=== PATIENT | male | born 1965 | race Caucasian/White ===

== ENCOUNTER 2016-06-15 14:30 | Inpatient (IN) | payer OTHER ==
--- NOTE | 2016-06-15 14:53 | EDPRACDOC ---
- General Information Information Source: Patient Mode Of Arrival: Car - History of Present Illness Onset: 2 WEEKS HPI: PT STATES INCREASING SOBR X 2 WEEKS, FAMILY STATES PT HAS BEEN "WAKING UP SOBR" , HAS BEEN "GASPING FOR AIR", HAVING FREQUENT "PANIC ATTACKS", WENT TO URGENT CARE TODAY, BP FOUND TO BE MARKEDLY ELEVATED, REFERRED TO THE ED. Shortness of Breath: Moderate Relevant History: Reports: None Cough: Reports: Non-productive Rhinorrhea: Denies: Clear, Bloody, Brown, Green, Purulent, None, O Ear Symptoms: Reports: None SOB Worsens with: Reports: Nothing SOB Improves with: Reports: Nothing Recently treated infections:: Denies: Otitis media, Pneumonia, URI Associated Signs and symptoms: Reports: AMS (FAMILY STATES SLURRED SPEECH AT TIMES). Denies: Cough, Earache, Fever, Headache, Nasal Symptoms, Sore Throat, Nausea, Vomiting, Diarrhea, Myalgia, Rash, Pain with head movement <Young Arreguin - Last Filed: 06/15/16 16:18> <Freddie Conde - Last Filed: 06/17/16 22:28> - General Information Chief Complaint: Blood Pressure (Problems) Stated Complaint: HIGH BLOOD PRESSURE Time Seen by Provider: 06/15/16 14:45 Home Medications: Home Medications No Home Medications 06/15/16 Allergies/Adverse Reactions: Allergies Allergy/AdvReac Type Severity Reaction Status Date / Time No Known Allergies Allergy Verified 06/15/16 20:09 - Treatment Prior to ED Arrival Reported Medications/Treatment 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 (Medication/ NTG/baby ASA x4 at Urgent [facility] Dose/Time) <Young Arreguin - Last Filed: 06/15/16 16:18> - Treatment Prior to ED Arrival Reported Medications/Treatment 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 (Medication/ NTG/baby ASA x4 at Urgent [facility] Dose/Time) <Freddie Conde - Last Filed: 06/17/16 22:28> ED Past Medical History - History Reviewed Yes Nurses notes reviewed and agree except as marked No Past Medical History: Yes Patient has no past medical history - Social Medical History Smoking Status: Heavy tobacco smoker (5 or more cigarettes/day or daily pipe/ cigar) ETOH: Abuse (6 PACK A DAY) Substance Abuse: None <Young Arreguin - Last Filed: 06/15/16 16:18> EDM Review of Systems - Review of Systems Constitutional: negative: Chills, Fever, Fatigue, Weakness Eyes: negative: Blurred Vision, Double Vision Ears: negative: Drainage Throat: negative: Pain Nose: negative: Congestion, Discharge Respiratory: Shortness of Breath. negative: Cough, Wheezing Cardiovascular: negative: Chest Pain, Palpitations Gastrointestinal: negative: Diarrhea, Nausea, Pain, Vomiting Genitourinary: negative: Dysuria, Frequency Neurological: Dizziness, Speech Difficulty. negative: Headache, Numbness, Weakness Musculoskeletal: No Symptoms Reported Integumentary: No Symptoms Reported <Young Arreguin - Last Filed: 06/15/16 16:18> - Physical Exam Constitutional: Alert (Awake), No apparent distress Oriented to: Time, Person, Place Last recorded Vital Signs: Last Vital Signs Temp 97.0 F L 06/15/16 14:38 Pulse 123 H 06/15/16 14:49 Resp 20 06/15/16 14:49 BP 248/179 H 06/15/16 14:49 Pulse Ox 97 06/15/16 14:49 Oxygen Pulse Oxygen Saturation 97 O2 Device Room Air Oxygen Flow Rate Fraction of Inspired Oxygen ( FIO2) - HEENT Head: Normal ( normocephalic) Eye Exam: Normal (PERRL, EOMI, Sclera white) Oropharynx: Normal (Pharynx:Moist without exudate,Gums-no swelling) Tympanic Membrane: Normal ENT EAC: Normal TMJ: Normal Nose: No Symptoms Reported (septum midline) Neck: Normal (FROM, trachea at midline) - Respiratory/Cardiovascular Respiratory: Normal - CTA (BBS clear to auscultation without adventitious sounds ) Cardiovascular: Tachycardia. negative: Irregular, Diastolic murmur, Systolic murmur - GI Auscultation: Normal (NABS) Palpation: Normal (Soft,No rebound or guarding, non distended) Tenderness: Non tender Silva's Sign: Negative - Musculoskeletal Back: Normal (Non-Tender) Extremities: Normal (Normal tone, Pulses 2+ No cyanosis or edema, FROM) - Integumentary Skin: Normal, Warm, Dry Lymphatics: Normal (no adenopathy) - Neurologic Memory Impaired: Normal Motor Function: Normal (Normal tone, Pulses 2+ No cyanosis or edema, FROM) Cranial Nerve: Normal (CN II-X11 intact sensation, strength 5/5) Cerebellar: Normal Mood Description: Normal Perception: Normal <Renato Arreguinson - Last Filed: 06/15/16 16:18> - Physical Exam Last recorded Vital Signs: Last Vital Signs Temp 98.1 F 06/17/16 20:03 Pulse 76 06/17/16 22:07 Resp 20 06/17/16 20:03 BP 160/104 H 06/17/16 20:03 Pulse Ox 96 06/17/16 20:03 Oxygen Pulse Oxygen Saturation 93 O2 Device Room Air Oxygen Flow Rate Fraction of Inspired Oxygen ( FIO2) <Freddie Conde - Last Filed: 06/17/16 22:28> ED SOB MDM - Differential Diagnosis Differential Diagnosis: Heart Failure, Pnuemonia - Re-evaluation Re-evaluation 1 Re-evaluation Time: 15:56 (NO COMPLAINTS, BP REMAINS ELEVATED) Re-evaluation 2 Re-evaluation Time: 16:18 (BP REMAINS ELEVATED, DISCUSSED WITH DR CONDE, HE WILL DISCUSS WITH THE HOSPITALIST FOR ADMISSION) - Results Result Diagrams: 06/15/16 15:12 06/15/16 15:12 Results: 06/15/16 16:18 Laboratory Results - last 24 hr 06/15/16 06/15/16 06/15/16 15:12 15:12 15:12 WBC 7.7 RBC 5.08 Hgb 16.2 Hct 48.0 MCV 95 H MCH 31.9 MCHC 33.7 RDW 13.6 Plt Count 184 MPV 10.0 Neut % (Auto) 60.2 Lymph % (Auto) 26.5 [place] % (Auto) 10.4 H Eos % (Auto) 1.6 Baso % (Auto) 1.3 Absolute Neuts (auto) 4.62 Absolute Lymphs (auto) 2.00 PT 11.5 H INR 1.1 APTT 24.2 Sodium 140 Potassium 4.3 Chloride 106 Carbon Dioxide 22 Anion Gap 16 BUN 23 H Creatinine 1.20 Estimated GFR (MDRD) > 60 Glucose 102 H Calculated Osmolality 273 Calcium 9.2 Total Bilirubin 1.2 AST 32 ALT 41 Alkaline Phosphatase 81 Troponin I 0.09 Rls-Z-Ynlsxvvhzxx Pept 6220 H Total Protein 7.0 Albumin 4.0 - EKG EKG #1 EKG Time: 14:47 -: Yes EKG interpreted by me Rate: bpm: 123 [place]: Normal Rhythm: ST Block: None Hypertrophy: None ST: Nonsp Comments: NO OLD EKG FOR COMPARISON - Diagnostic Imaging CXR Image interpreted by: Radiologist Diagnostic Imaging Comments: PORTABLE CHEST 1 VIEW COMPARISON: None. FINDINGS: The heart size appears increased. Prominent central markings could represent pulmonary artery enlargement or adenopathy. There is mild vascular congestion. No focal infiltrates or failure. No effusion or pneumothorax. Bones unremarkable. IMPRESSION: Cardiomegaly. Prominent central hilar regions could represent adenopathy or pulmonary artery enlargement. Consider further evaluation with two view chest, or CTA chest as clinically indicated. CT HEAD Image interpreted by: Radiologist Diagnostic Imaging Comments: CT HEAD WITHOUT CONTRAST TECHNIQUE: Contiguous axial images were obtained from the base of the skull through the vertex without intravenous contrast. COMPARISON: None. FINDINGS: The ventricles are normal in size and configuration. There is no intracranial mass, hemorrhage, extra-axial fluid collection, or midline shift. There is small vessel disease in the centra semiovale bilaterally with several small lacunar type infarcts in the centra semiovale bilaterally. There is evidence of a prior infarct in the mid right thalamus region. There is mild small vessel disease in the left thalamus. There is evidence of a prior infarct in the anterior left lentiform nucleus. No acute infarct is evident. Bony calvarium appears intact. Visualized mastoid air cells are clear. Visualized orbital regions appear unremarkable. IMPRESSION: Periventricular small vessel disease. Several prior small infarcts in the periventricular white matter as well as in the anterior left lentiform nucleus and mid right thalamus. There is mild small vessel disease left thalamus. No acute infarct evident. No hemorrhage or mass effect. <Young Arreguin - Last Filed: 06/15/16 16:18> - Results Result Diagrams: 06/16/16 04:20 06/17/16 03:35 Results: WBC 7.5 xk/uL (3.8-10.8) 06/16/16 04:20 RBC 4.95 xM/uL (4.70-6.10) 06/16/16 04:20 Hgb 15.7 g/dL (14.0-18.0) 06/16/16 04:20 Hct 46.8 % (42-52) 06/16/16 04:20 MCV 94 fL (80-94) 06/16/16 04:20 MCH 31.8 pg (27-32) 06/16/16 04:20 MCHC 33.7 g/dl (33-36) 06/16/16 04:20 RDW 13.2 % (11.5-14.5) 06/16/16 04:20 Plt Count 181 xk/uL (130-400) 06/16/16 04:20 MPV 10.2 fL (7.4-10.4) 06/16/16 04:20 Neut % (Auto) 62.3 % (45-76) 06/16/16 04:20 Lymph % (Auto) 24.3 % (17-44) 06/16/16 04:20 [place] % (Auto) 11.1 % (3-10) H 06/16/16 04:20 Eos % (Auto) 1.7 % (0-5) 06/16/16 04:20 Baso % (Auto) 0.6 % (0-2) 06/16/16 04:20 Absolute Neuts (auto) 4.65 xk/uL (1.7-8.2) 06/16/16 04:20 Absolute Lymphs (auto) 1.80 xk/uL (0.65-4.75) 06/16/16 04:20 PT 11.5 SEC (9.2-11.2) H 06/15/16 15:12 INR 1.1 06/15/16 15:12 APTT 24.2 SEC (22-35) 06/15/16 15:12 Sodium 138 mEq/L (137-146) 06/17/16 03:35 Potassium 3.9 mEq/L (3.5-5.1) 06/17/16 03:35 Chloride 100 mEq/L (98-107) 06/17/16 03:35 Carbon Dioxide 26 mMOL/L (22-33) 06/17/16 03:35 Anion Gap 16 mEq/L (8-16) 06/17/16 03:35 BUN 16 MG/DL (9-20) 06/17/16 03:35 Creatinine 1.20 MG/DL (0.66-1.25) 06/17/16 03:35 Estimated GFR (MDRD) > 60 mL/min (>=60) 06/17/16 03:35 Glucose 91 MG/DL (70-99) 06/17/16 03:35 Calculated Osmolality 267 MOs/Kg (270-290) L 06/17/16 03:35 Calcium 9.5 MG/DL (8.4-10.2) 06/17/16 03:35 Corrected Calcium 10.0 MG/DL (8.4-10.2) 06/16/16 04:20 Magnesium 1.70 MG/DL (1.6-2.3) 06/17/16 03:35 Total Bilirubin 1.8 MG/DL (0.2-1.3) H 06/16/16 04:20 AST 24 IU/L (17-59) 06/16/16 04:20 ALT 40 IU/L (21-72) 06/16/16 04:20 Alkaline Phosphatase 79 IU/L (38-126) 06/16/16 04:20 Troponin I 0.10 ng/mL (<.04) 06/15/16 20:40 Qrx-B-[place] Pept 5440 pg/mL (0-900) H 06/16/16 04:20 Total Protein 6.1 G/DL (6.3-8.2) L 06/16/16 04:20 Albumin 3.4 G/DL (3.5-5.0) L 06/16/16 04:20 Triglycerides 114 MG/DL (<150) 06/16/16 04:20 Cholesterol 146 MG/DL (100-200) 06/16/16 04:20 LDL Cholesterol, Calc 79.2 MG/DL (<100) 06/16/16 04:20 VLDL Cholesterol, Calc 22.8 MG/DL (5-40) 06/16/16 04:20 HDL Cholesterol 44.0 MG/DL (>40.0) 06/16/16 04:20 Cholesterol/HDL Ratio 3.3 06/16/16 04:20 Lab Results 06/15/16 06/15/16 06/15/16 15:12 15:12 15:12 WBC 7.7 RBC 5.08 Hgb 16.2 Hct 48.0 MCV 95 H MCH 31.9 MCHC 33.7 RDW 13.6 Plt Count 184 MPV 10.0 Neut % (Auto) 60.2 Lymph % (Auto) 26.5 [place] % (Auto) 10.4 H Eos % (Auto) 1.6 Baso % (Auto) 1.3 Absolute Neuts (auto) 4.62 Absolute Lymphs (auto) 2.00 PT 11.5 H INR 1.1 APTT 24.2 Sodium 140 Potassium 4.3 Chloride 106 Carbon Dioxide 22 Anion Gap 16 BUN 23 H Creatinine 1.20 Estimated GFR (MDRD) > 60 Glucose 102 H Calculated Osmolality 273 Calcium 9.2 Total Bilirubin 1.2 AST 32 ALT 41 Alkaline Phosphatase 81 Troponin I 0.09 Imz-S-Dmsntokrkzk Pept 6220 H Total Protein 7.0 Albumin 4.0 <Freddie Conde - Last Filed: 06/17/16 22:28> - Departure Education/Counseling Given To: Patient Education/Counseling Given Regarding: Diagnosis, Treatment, Prognosis, Follow Up <Young Arreguin - Last Filed: 06/15/16 16:18> - Departure Yes I personally saw and evaluated the patient. Disposition: Admit IP To This Hospital Decision to Admit Time: 16:45 Decision to admit date: 06/15/16 Decision to admit: from ED <Freddie Conde - Last Filed: 06/17/16 22:28> - Departure Condition: Serious Final Diagnosis: Hypertensive emergency, CONGESTIVE HEART FAILURE, NEW ONSET, CLAUDIO ZONE TROPONIN
[2016-06-15] MEDS ORDERED: ENALAPRILAT 1.25 MG/ML VIAL IV ONE (14:54)
[2016-06-15] MEDS ORDERED: SODIUM CHLORIDE 0.9% 10 ML FLUSH FLUSH PRN (14:54)
--- NOTE | 2016-06-15 15:15 | DIRPT ---
CLINICAL DATA: Increased shortness of breath for 2 weeks. Gasping for air. Panic attacks. EXAM: PORTABLE CHEST 1 VIEW COMPARISON: None. FINDINGS: The heart size appears increased. Prominent central markings could represent pulmonary artery enlargement or adenopathy. There is mild vascular congestion. No focal infiltrates or failure. No effusion or pneumothorax. Bones unremarkable. IMPRESSION: Cardiomegaly. Prominent central hilar regions could represent adenopathy or pulmonary artery enlargement. Consider further evaluation with two view chest, or CTA chest as clinically indicated. Electronically Signed By: Waqas Casarez M.D. On: 06/15/2016 15:12
[2016-06-15 15:22] LABS: AUTOMATED BASOPHIL 1.3 % (0-2); AUTOMATED EOSINOPHIL 1.6 % (0-5); AUTOMATED LYMPH 26.5 % (17-44); AUTOMATED MONOCYTE 10.4 % (3-10); AUTOMATED NEUTROPHIL 60.2 % (45-76)
[2016-06-15 15:36] LABS: BLOOD UREA NITROGEN 23 MG/DL (9-20); CALCIUM 9.2 MG/DL (8.4-10.2); CALCULATED OSMOLALITY 273 MOs/Kg (270-290); CHLORIDE 106 mEq/L (98-107); GLUCOSE 102 MG/DL (70-99); SODIUM LEVEL 140 mEq/L (137-146)
[2016-06-15 15:38] LABS: PARTIAL THROMB. TIME 24.2 SEC (22-35); PT-INR 1.1
[2016-06-15] MEDS ORDERED: LABETALOL 20 MG/4 ML SYRINGE IV STA (15:49)
--- NOTE | 2016-06-15 15:53 | DIRPT ---
CLINICAL DATA: Altered mental status. Hypertension. Intermittent slurred speech EXAM: CT HEAD WITHOUT CONTRAST TECHNIQUE: Contiguous axial images were obtained from the base of the skull through the vertex without intravenous contrast. COMPARISON: None. FINDINGS: The ventricles are normal in size and configuration. There is no intracranial mass, hemorrhage, extra-axial fluid collection, or midline shift. There is small vessel disease in the centra semiovale bilaterally with several small lacunar type infarcts in the centra semiovale bilaterally. There is evidence of a prior infarct in the mid right thalamus region. There is mild small vessel disease in the left thalamus. There is evidence of a prior infarct in the anterior left lentiform nucleus. No acute infarct is evident. Bony calvarium appears intact. Visualized mastoid air cells are clear. Visualized orbital regions appear unremarkable. IMPRESSION: Periventricular small vessel disease. Several prior small infarcts in the periventricular white matter as well as in the anterior left lentiform nucleus and mid right thalamus. There is mild small vessel disease left thalamus. No acute infarct evident. No hemorrhage or mass effect. Electronically Signed By: Zoran Luna III, M.D. On: 06/15/2016 15:50
[2016-06-15] MEDS ORDERED: ZOLPIDEM TARTRATE 5 MG TAB PO PRN (17:01)
[2016-06-15] MEDS ORDERED: Docusate Sodium 100 MG CAP PO PRN (17:01)
[2016-06-15] MEDS ORDERED: MAGNESIUM HYDROXIDE 30 ML BOTTLE PO PRN (17:01)
[2016-06-15] MEDS ORDERED: ONDANSETRON HCL 4 MG/2 ML VIAL IV PRN (17:01)
[2016-06-15] MEDS ORDERED: Albuterol/Ipratropium Neb 3 ML NEB NEB PRN (17:01)
[2016-06-15] MEDS ORDERED: ACETAMINOPHEN 325 MG/TAB TABLET PO PRN (17:01)
[2016-06-15] MEDS ORDERED: LABETALOL 20 MG/4 ML SYRINGE IV PRN (17:07)
[2016-06-15] MEDS ORDERED: LORAZEPAM 2 MG/ML VIAL IV PRN (17:08)
[2016-06-15] MEDS ORDERED: CARVEDILOL 6.25 MG TAB PO ONE (17:15)
--- NOTE | 2016-06-15 17:15 | HISTPHYS ---
- Chief Complaint Severe shortness of breath. - History of Present Illness Mr. Mitchell is a 50-year-old white male with no previous medical history presents emergency room with severe respiratory distress. In the emergency room he was found have a blood pressure of 250 systolic and is clearly in congestive heart failure. Family states that he has been sleeping on 3 pillows. He has symptoms of orthopnea and paroxysmal nocturnal dyspnea. He says a family member checked his blood pressure approximately 1 month ago and found to be 220/ 170. They told him that he needed to go to the doctor then but he refused. Chest x-ray shows cardiomegaly. He has received doses of labetalol and Vasotec with some improvement in his blood pressure doubt wheeled into the 180s systolic. He remains short of breath and congested. He takes no medicines regularly. He unfortunately does smoke though he states he has cut down over the last month since he has been feeling so bad. He also drinks approximately 6 beers daily. He also underwent a head CT which showed chronic microvascular changes and small ischemic appearing strokes. He is being admitted for further evaluation management of malignant hypertension and new onset congestive heart failure. - Medical History Cardiac History: Reports: Hypertension (Not officially diagnosed) Respiratory History: Reports: No Significant History GI/ History: Reports: No Significant History Musculoskeletal History: Reports: No Significant History Systemic History: Reports: No Significant History Neurological History: Reports: No Significant History Psychological History: Reports: No Significant History. Denies: Depression - Surgical History Reports: No Significant History - Medictions/Allergies Allergies No Known Allergies Allergy (Verified 06/15/16 14:38) Current Medication List: Reviewed Home Medications No Home Medications 06/15/16 - Family History Reports: Hypertension, Stroke, Cardiac Disorders - Social History Travel Outside of [place] in the Last 3 Months?: No Lives: with Spouse Smoking Status: Heavy tobacco smoker (5 or more cigarettes/day or daily pipe/ cigar) Social History: Reports: Alcohol Use (Six beers daily) - Review of Systems Yes All systems reviewed and were negative except as marked Constitutional: Fatigue, Weakness. negative: Chills, Fever - Eyes No Symptoms Reported. negative: Blurred Vision, Double Vision, Redness - Ears No Symptoms Reported. negative: Drainage, Hearing Loss, Pain - Nose No Symptoms Reported. negative: Abrasion, Bleeding, Congestion - Mouth Mouth: No Symptoms Reported. negative: Pain, Drooling, Denture - Throat/Neck No Symptoms Reported. negative: Pain, Hoarseness, Snoring - Respiratory Cough, Shortness of Breath. negative: Wheezing, Sputum - Cardiovascular Edema, Orthopnea, Palpitations, PND. negative: Chest Pain - Gastrointestinal Gastrointestinal: No Symptoms Reported. negative: Nausea, Vomiting, Abdominal Pain - Genitourinary Genitourinary: No Symptoms Reported. negative: Bleeding, Dysuria - Neurological No Symptoms Reported. negative: Dizziness, Seizure, Speech Difficulty, Weakness - Musculoskeletal Musculoskeletal:: No Symptoms Reported. negative: Chronic low back pain, Arthritis, Stiffness - Integumentary No Symptoms Reported. negative: Bruising, Itching, Rash, Wound - Allergic/Immunologic No Symptoms Reported. negative: Hives, Itching - Hematologic No Symptoms Reported. negative: Lymphadenopathy, Easy Bruising, Anemia, Past Transfusions - Endocrine No Symptoms Reported. negative: Weight Gain, Weight Loss, Excessive Sweating, Heat Intolerance, Cold Intolerance - Psychiatric No Symptoms Reported. negative: Anxiety, Hallucinations, Insomnia - Physical Exam Constitutional: Alert (Awake), Distress, Restless, Well nourished. negative: Well appearing Oriented to: Time, Person, Place Exam: Last Vital Signs Temp 97.0 F L 06/15/16 14:38 Pulse 109 06/15/16 15:54 Resp 20 06/15/16 15:54 BP 225/140 H 06/15/16 15:54 Pulse Ox 94 06/15/16 15:54 Intake & Output 06/15/16 06/15/16 06/15/16 07:59 15:59 23:59 Patient's weight 81.647 kg - HEENT Head: Normal ( normocephalic) Eye: Normal (PERRL, EOMI, Sclera white) Oropharynx: Normal (Pharynx:Moist without exudate,Gums-no swelling) Tympanic Membrane: Normal ENT EAC: Normal TMJ: Normal Nose: No Symptoms Reported (septum midline) - Respiratory/Cardiovascular Respiratory: Rales, Tachypnea Cardiovascular: Tachycardia, Systolic murmur, Gallop/S3 - GI Auscultation: Normal (NABS) Palpation: Normal (Soft,No rebound or guarding, non distended) Tenderness: Non tender - Musculoskeletal Back: Normal (Non-Tender). negative: Abrasion, Ecchymosis Extremities: Normal (Normal tone, Pulses 2+ No cyanosis or edema, FROM), Edema, Femoral Pulse, Pedal Edema, Pedal Pulse - Integumentary Skin: Normal, Warm, Dry Lymphatics: Normal (no adenopathy). negative: Adenopathy - Neurologic Memory Impaired: Normal Motor Function: Normal Cranial Nerve: Normal Cerebellar: Normal Mood Description: Normal Thought: Coherent Perception: Normal - Focused CV Perfusion Exam Vital Signs: Last Vital Signs Temp 97.0 F L 06/15/16 14:38 Pulse 109 06/15/16 15:54 Resp 20 06/15/16 15:54 BP 225/140 H 06/15/16 15:54 Pulse Ox 94 06/15/16 15:54 - Lab Results Laboratory Results - last 24 hr 06/15/16 06/15/16 06/15/16 15:12 15:12 15:12 WBC 7.7 RBC 5.08 Hgb 16.2 Hct 48.0 MCV 95 H MCH 31.9 MCHC 33.7 RDW 13.6 Plt Count 184 MPV 10.0 Neut % (Auto) 60.2 Lymph % (Auto) 26.5 [place] % (Auto) 10.4 H Eos % (Auto) 1.6 Baso % (Auto) 1.3 Absolute Neuts (auto) 4.62 Absolute Lymphs (auto) 2.00 PT 11.5 H INR 1.1 APTT 24.2 Sodium 140 Potassium 4.3 Chloride 106 Carbon Dioxide 22 Anion Gap 16 BUN 23 H Creatinine 1.20 Estimated GFR (MDRD) > 60 Glucose 102 H Calculated Osmolality 273 Calcium 9.2 Total Bilirubin 1.2 AST 32 ALT 41 Alkaline Phosphatase 81 Troponin I 0.09 Tzt-G-Cvrofolmmnr Pept 6220 H Total Protein 7.0 Albumin 4.0 - Assessment (1) Malignant hypertension I10 - ESSENTIAL (PRIMARY) HYPERTENSION Acute Present on Admission: Yes Starting Coreg and lisinopril. P.r.n. hydralazine and labetalol. Titrate medications as needed. (2) Congestive heart failure I50.9 - HEART FAILURE, UNSPECIFIED Acute Present on Admission: Yes Qualifiers: Congestive heart failure type: unspecified congestive heart failure type Congestive heart failure chronicity: acute Qualified Code(s): I50.9 - Heart failure, unspecified New onset and likely due to a combination of uncontrolled hypertension and alcohol abuse. He does have cardiomegaly on chest x-ray. Will start on Coreg and lisinopril. Will use labetalol and hydralazine to further control blood pressure. Will check a 2D echo. Will initiate aspirin and Lipitor therapy as well given concern for ischemic changes on CT scan of head (3) Respiratory distress R06.00 - DYSPNEA, UNSPECIFIED Acute Present on Admission: Yes Improving with improved blood pressure. Oxygen as needed. Start some IV Lasix. (4) Alcohol abuse F10.10 - ALCOHOL ABUSE, UNCOMPLICATED Acute Present on Admission: Yes Counseled cessation. P.r.n. Ativan. (5) Tobacco abuse Z72.0 - TOBACCO USE Acute Present on Admission: Yes He has been cutting back due to worsening respiratory difficulty. Counseled complete and total cessation. Case Care Discussed with: Patient Total Time: 1 hour Critical Care: Yes
[2016-06-15] MEDS: LISINOPRIL 10 MG TAB PO SCH (17:25)
[2016-06-15] MEDS: ASPIRIN 325 MG TAB PO SCH (17:25)
[2016-06-15 18:38] VITALS: BMI 28.8
[2016-06-15] MEDS: FUROSEMIDE 40 MG/4 ML VIAL IV SCH (18:45)
[2016-06-15] MEDS: ENOXAPARIN 40 MG/0.4 ML PFS SQ SCH (18:45)
[2016-06-15] MEDS: NICOTINE 21 MG PATCH TOP SCH (18:45)
[2016-06-15] MEDS ORDERED: Vaccine Screening Complete SCH (19:00)
[2016-06-15] MEDS: hydrALAZINE 20 MG/ML VIAL IV PRN (20:06)
[2016-06-15] MEDS: ATORVASTATIN 20 MG TAB PO SCH (20:07)
[2016-06-16] MEDS: hydrALAZINE 20 MG/ML VIAL IV PRN ×2 (01:34→15:39)
[2016-06-16 05:26] LABS: AUTOMATED BASOPHIL 0.6 % (0-2); AUTOMATED EOSINOPHIL 1.7 % (0-5); AUTOMATED LYMPH 24.3 % (17-44); AUTOMATED MONOCYTE 11.1 % (3-10); AUTOMATED NEUTROPHIL 62.3 % (45-76); MPV 10.2 fL (7.4-10.4)
[2016-06-16 05:35] LABS: BLOOD UREA NITROGEN 18 MG/DL (9-20); CALCIUM 9.4 MG/DL (8.4-10.2); CALCULATED OSMOLALITY 269 MOs/Kg (270-290); CHLORIDE 102 mEq/L (98-107); GLUCOSE 89 MG/DL (70-99); LDL (calc.) 79.2 MG/DL (<100); SODIUM LEVEL 139 mEq/L (137-146); TOTAL PROTEIN 6.1 G/DL (6.3-8.2); VLDL (calc.) 22.8 MG/DL (5-40)
[2016-06-16] MEDS ORDERED: PNEUMOCOCCAL 0.5 ML VIAL IM ONE (08:00)
[2016-06-16] MEDS ORDERED: FLU VACCINE (Afluria) 0.5 ML DOSE IM ONE (08:00)
[2016-06-16] MEDS: ASPIRIN 325 MG TAB PO SCH (08:09)
[2016-06-16] MEDS: CARVEDILOL 6.25 MG TAB PO SCH ×3 (08:09→19:29)
[2016-06-16] MEDS: LISINOPRIL 10 MG TAB PO SCH (08:09)
[2016-06-16] MEDS: FUROSEMIDE 40 MG/4 ML VIAL IV SCH ×2 (08:09→17:29)
--- NOTE | 2016-06-16 09:08 | GENMEDPROG ---
Subjective Note: Patient in bed responsive follows commands. Still visibly short of breath, coughing producing small amount of foamy sputum no hemoptysis. No farther PND orthopnea. Notes Reviewed: Yes Events from last night noted and discussed with Clinical Staff Current Medication List: Reviewed Currently: Reports: Cough, STEWARD, SOB, Sputum, Tobacco Use/Hx, Alcohol Hx, Reflux Sx DVT Prophylaxis: Yes - Physical Examination Vital Signs and I&O: Last Vital Signs Temp 97.8 F 06/16/16 08:00 Pulse 91 06/16/16 08:00 Resp 19 06/16/16 08:00 BP 150/57 L 06/16/16 08:00 Pulse Ox 93 06/16/16 08:00 Oxygen Pulse Oxygen Saturation 93 O2 Device Room Air Oxygen Flow Rate Fraction of Inspired Oxygen ( FIO2) Intake & Output 06/13/16 06/14/16 06/15/16 06/16/16 23:59 23:59 23:59 23:59 Intake Total 120 120 Output Total 1200 Balance -1080 120 Patient's weight 78.727 kg 72.892 kg General: Alert, Oriented x3, Cooperative, Mild distress HEENT: Normal, PERRLA, EOMI, Anicteric Sclera Neck: Non-tender, Normal inspection, Limited range of motion Lymphatics: Normal (no adenopathy). negative: Adenopathy Respiratory: Diminished, Rales, Rhonchi Cardiovascular: Regular rate, Normal S1, Normal S2, Murmurs GI: Normal bowel sounds, Soft, Non tender, No hepatospenomegaly Extremities/Musculoskeletal: Normal pulses, Edema Skin: Warm,Dry and Intact, No rashes, No breakdown, No significant lesion Neurological: Normal speech, Normal tone, Cranial nerves 3-12 NL Psych/Mental Status: Anxious Lab/DI/Studies Reviewed: Allergies No Known Allergies Allergy (Verified 06/15/16 20:09) 06/16/16 04:20 06/16/16 04:20 Abnormal Lab Results 06/15/16 06/15/16 06/15/16 15:12 15:12 15:12 MCV 95 H Gallia % (Auto) 10.4 H PT 11.5 H Anion Gap BUN 23 H Glucose 102 H Calculated Osmolality Total Bilirubin [id number] Pept 6220 H Total Protein Albumin 06/16/16 06/16/16 04:20 04:20 MCV Gallia % (Auto) 11.1 H PT Anion Gap 17 H BUN Glucose Calculated Osmolality 269 L Total Bilirubin 1.8 H [id number]-Nhbtlhlpeyi Pept Total Protein 6.1 L Albumin 3.4 L Last Vital Signs Temp 97.8 F 06/16/16 08:00 Pulse 91 06/16/16 08:00 Resp 19 06/16/16 08:00 BP 150/57 L 06/16/16 08:00 Pulse Ox 93 06/16/16 08:00 Vital Signs - 24 hr 06/15/16 06/15/16 06/15/16 14:38 14:49 14:57 Temperature 97.0 F L Pulse Rate 131 H 123 H 118 Respiratory 18 20 18 Rate Blood Pressure 257/179 H 248/179 H 235/167 H Pulse Oxygen 97 97 95 Saturation 06/15/16 06/15/16 06/15/16 15:10 15:47 15:54 Temperature Pulse Rate 118 114 109 Respiratory 20 20 Rate Blood Pressure 235/167 H 224/152 H 225/140 H Pulse Oxygen 96 94 Saturation 06/15/16 06/15/16 06/15/16 17:20 17:35 18:02 Temperature Pulse Rate 86 88 86 Respiratory 20 20 21 Rate Blood Pressure 184/143 H 184/136 H 179/136 H Pulse Oxygen 93 94 96 Saturation 06/15/16 06/15/16 06/15/16 18:15 20:00 20:05 Temperature 97.9 F 98.7 F Pulse Rate 89 93 88 Respiratory 18 18 Rate Blood Pressure 187/140 H 180/126 H Pulse Oxygen 98 95 94 Saturation 06/15/16 06/15/16 06/15/16 20:16 21:33 22:10 Temperature Pulse Rate 93 79 Respiratory Rate Blood Pressure 156/110 H Pulse Oxygen Saturation 06/15/16 06/16/16 06/16/16 23:30 00:00 01:23 Temperature 98.8 F Pulse Rate 86 92 90 Respiratory 22 Rate Blood Pressure 160/100 176/120 H Pulse Oxygen 94 Saturation 06/16/16 06/16/16 06/16/16 02:00 03:01 04:17 Temperature Pulse Rate 97 97 95 Respiratory Rate Blood Pressure 150/100 Pulse Oxygen Saturation 06/16/16 06/16/16 06/16/16 04:23 05:40 05:56 Temperature 98.4 F Pulse Rate 98 83 Respiratory 20 Rate Blood Pressure 170/112 H 152/98 Pulse Oxygen 97 Saturation 06/16/16 06/16/16 07:34 08:00 Temperature 97.8 F Pulse Rate 93 91 Respiratory 19 Rate Blood Pressure 150/57 L Pulse Oxygen 93 Saturation - Assessment (1) Hypertensive emergency Acute I16.1 - HYPERTENSIVE EMERGENCY Comment/Plan: Adjust meds ,keep SBP above 140. Dietary consult today (2) Congestive heart failure Acute I50.9 - HEART FAILURE, UNSPECIFIED Qualifiers: Congestive heart failure type: unspecified congestive heart failure type Congestive heart failure chronicity: acute Qualified Code(s): I50.9 - Heart failure, unspecified Comment/Plan: Continue IV diuretic, call rec lisinopril and salt restriction. Monitor weight and fluid balance. Echo pending (3) CVA (cerebral vascular accident) Acute I63.9 - CEREBRAL INFARCTION, UNSPECIFIED Qualifiers: Laterality of affected vessel: bilateral Comment/Plan: Continue full dose aspirin. Carotid Dopplers will be obtained (4) Dyslipidemia Chronic E78.5 - HYPERLIPIDEMIA, UNSPECIFIED Comment/Plan: Continue statin, lipid panel pending. (5) Nicotine addiction Acute F17.200 - NICOTINE DEPENDENCE, UNSPECIFIED, UNCOMPLICATED Qualifiers: Nicotine product type: cigarettes Substance use status: other nicotine- induced disorder Qualified Code(s): F17.218 - Nicotine dependence, cigarettes , with other nicotine-induced disorders Comment/Plan: Continue nicotine patch. Smoking cessation counseling provided the patient (6) Alcohol abuse Acute F10.10 - ALCOHOL ABUSE, UNCOMPLICATED Comment/Plan: Counseled cessation. P.r.n. Ativan. Add thiamine Case Care Discussed with: Patient, Family, Nursing Staff, Resource Management, School Custodian Education/Counseling Given To: Patient Education/Counseling Given Regarding: Diagnosis, Treatment, Prognosis, Follow Up Total Time: 55 min . Critical Care: Yes Code: 291
[2016-06-16] MEDS ORDERED: LISINOPRIL 10 MG TAB PO ONE (10:00)
--- NOTE | 2016-06-16 11:25 | DIRPT ---
CLINICAL DATA: Stroke EXAM: BILATERAL CAROTID DUPLEX ULTRASOUND TECHNIQUE: Judd scale imaging, color Doppler and duplex ultrasound were performed of bilateral carotid and vertebral arteries in the neck. COMPARISON: None. FINDINGS: Criteria: Quantification of carotid stenosis is based on velocity parameters that correlate the residual internal carotid diameter with NASCET-based stenosis levels, using the diameter of the distal internal carotid lumen as the denominator for stenosis measurement. The following velocity measurements were obtained: RIGHT ICA: 65 cm/sec CCA: 106 cm/sec SYSTOLIC ICA/CCA RATIO: 0.6 DIASTOLIC ICA/CCA RATIO: 1.8 ECA: 134 cm/sec LEFT ICA: 61 cm/sec CCA: 126 cm/sec SYSTOLIC ICA/CCA RATIO: 0.5 DIASTOLIC ICA/CCA RATIO: 1.0 ECA: 161 cm/sec RIGHT CAROTID ARTERY: Mild smooth plaque in the bulb. Low resistance internal carotid Doppler pattern. RIGHT VERTEBRAL ARTERY: Flow in the right vertebral artery could not be documented. Venous flow was documented by Doppler analysis. LEFT CAROTID ARTERY: Mild smooth plaque in the bulb. Low resistance internal carotid Doppler pattern. LEFT VERTEBRAL ARTERY: Antegrade with a normal Doppler pattern. IMPRESSION: Less than 50% stenosis in the right and left internal carotid arteries. Antegrade flow in the left vertebral artery. Flow in the right vertebral artery could not be documented. It may be occluded. Electronically Signed By: Maurisio Taylor M.D. On: 06/16/2016 11:22
[2016-06-16] MEDS: THIAMINE 100 MG TAB PO SCH (12:07)
--- NOTE | 2016-06-16 17:05 | CAPUECHO ---
INDICATION: NEW ONSET CHF HEIGHT: 165.1 cm (5 ft 5.0 in) WEIGHT: 81.7 kg (180.0 lbs) BP: 170/112 BSA: 1.149308 m MEASUREMENTS 2D RVIDd: 2.4 cm LVOT Diam: 2.0 cm LA Diam: 3.9 cm EF Biplane: 53.00 % LAESV MOD A4C: 84.8 ml LAESV MOD A2C: 89.3 ml LAESV Index (A-L): 48.98 ml/m M-MODE IVSd: 0.8 cm LVIDd: 6.2 cm LVPWd: 1.1 cm LVIDs: 4.6 cm EF(Teich): 51 % Ao Diam: 3.4 cm LA Diam: 4.2 cm DOPPLER MV E Armando: 1.54 m/s MV A Armando: 0.57 m/s MV PHT: 40.16 ms MVA By PHT: 5.48 cm LVOT Vmax: 0.95 m/s AV Vmax: 1.23 m/s FELI Vmax, Pt: 2.38 cm TR Vmax: 2.48 m/s TR maxP mmHg RVSP: 44.96 mmHg FINDINGS ------- Procedure:2D images, m-mode, color and spectral Doppler were obtained and reviewed. ECG rhythm:Sinus rhythm. Study quality:This was a technically adequate study. Left Ventricle:The left ventricle is mildly dilated with mild concentric hypertrophy. There is mild diffuse hypokinesis with mildly depressed LVEF of 51%. There is adanced diastolic dysfunction wi th restrictive filling. Right Ventricle:The right ventricle is normal in size and function. Left Atrium:The left atrium is mildly dilated. Right Atrium:The right atrium is mildly enlarged. Septum intact. Aortic Valve:The aortic valve is trileaflet with mild aortic valve sclerosis, no regurgitation. Mitral Valve:Normal appearing mitral valve. Mhpt-ab-iapnbdgw mitral regurgitation is present. MR PISA RF 12.04%. Tricuspid Valve:The tricuspid valve appears structurally normal. Mild tricuspid regurgitation pres ent. The right ventricular systolic pressure, as measured by Doppler, is 45mmHg. Pulmonic Valve:The pulmonic valve is normal. Trace/mild (physiologic) pulmonic regurgitation. Aorta:The aortic root, ascending aorta and aortic arch appear normal. IVC:The inferior vena cava is dilated with no significant inspiratory collapse : increased central venous pressure. Pericardium:There is a very small, generalized pericardial effusion present. CONCLUSIONS 1. mild concentric left ventricular hypertrophy with diffuse hypokinesis, EF 51%, and advanced diast olic dysfunction 2. 2+ mild/mod mitral regurgitation, probably secondary to LV dysfunction 3. no rmal RV size/function, dilated RA and IVC, 2+ TR, elevated central venous and at least moderately e levated pulm artery pressure 4. mild aortic valve sclerosis Electronically Signed By: Joe Yung MD-- Electronically Signed On: 17:05:04
[2016-06-16] MEDS: NICOTINE 21 MG PATCH TOP SCH (17:30)
[2016-06-16] MEDS: ENOXAPARIN 40 MG/0.4 ML PFS SQ SCH (17:30)
[2016-06-16] MEDS: ATORVASTATIN 20 MG TAB PO SCH (19:29)
[2016-06-17] MEDS: hydrALAZINE 20 MG/ML VIAL IV PRN (03:17)
[2016-06-17 05:09] LABS: BLOOD UREA NITROGEN 16 MG/DL (9-20); CALCIUM 9.5 MG/DL (8.4-10.2); CALCULATED OSMOLALITY 267 MOs/Kg (270-290); CHLORIDE 100 mEq/L (98-107); GLUCOSE 91 MG/DL (70-99); SODIUM LEVEL 138 mEq/L (137-146)
[2016-06-17] MEDS: ASPIRIN 325 MG TAB PO SCH (08:17)
[2016-06-17] MEDS: FUROSEMIDE 40 MG/4 ML VIAL IV SCH ×2 (08:18→17:11)
[2016-06-17] MEDS: CARVEDILOL 6.25 MG TAB PO SCH (08:18)
[2016-06-17] MEDS: THIAMINE 100 MG TAB PO SCH (08:18)
[2016-06-17] MEDS ORDERED: LISINOPRIL 20 MG TAB PO SCH (09:00)
[2016-06-17] MEDS ORDERED: LISINOPRIL 40 MG TAB PO SCH (16:33)
[2016-06-17] MEDS: NICOTINE 21 MG PATCH TOP SCH (17:27)
[2016-06-17] MEDS: ENOXAPARIN 40 MG/0.4 ML PFS SQ SCH (17:28)
--- NOTE | 2016-06-17 18:04 | GENMEDPROG ---
Subjective Note: Patient in bed responsive follows commands. Breathing much improved, denies any palpitations PND or orthopnea. He has required p.r.n. IV BP medications last night. Denies any cough or sputum production. Notes Reviewed: Yes Events from last night noted and discussed with Clinical Staff Current Medication List: Reviewed Currently: Reports: Cough, STEWARD, SOB, Sputum, Tobacco Use/Hx, Alcohol Hx, Reflux Sx DVT Prophylaxis: Yes - Physical Examination Vital Signs and I&O: Last Vital Signs Temp 98.5 F 06/17/16 16:00 Pulse 79 06/17/16 16:00 Resp 18 06/17/16 16:00 BP 136/98 06/17/16 16:00 Pulse Ox 97 06/17/16 16:00 Oxygen Pulse Oxygen Saturation 97 O2 Device Room Air Oxygen Flow Rate Fraction of Inspired Oxygen ( FIO2) Intake & Output 06/14/16 06/15/16 06/16/16 06/17/16 23:59 23:59 23:59 23:59 Intake Total 120 370 243 Output Total 1200 600 Balance -1080 -230 243 Patient's weight 78.727 kg 72.892 kg 70.443 kg General: Alert, Oriented x3, Cooperative, No acute distress HEENT: Normal, PERRLA, EOMI, Anicteric Sclera Neck: Non-tender, Normal inspection, Limited range of motion Lymphatics: Normal (no adenopathy). negative: Adenopathy Respiratory: Diminished, Rhonchi Cardiovascular: Regular rate, Normal S1, Normal S2, Murmurs GI: Normal bowel sounds, Soft, Non tender, No hepatospenomegaly Extremities/Musculoskeletal: Normal pulses, Edema Skin: Warm,Dry and Intact, No rashes, No breakdown, No significant lesion Neurological: Normal speech, Normal tone, Cranial nerves 3-12 NL Psych/Mental Status: Anxious Lab/DI/Studies Reviewed: Allergies No Known Allergies Allergy (Verified 06/15/16 20:09) Last Vital Signs Temp 98.5 F 06/17/16 16:00 Pulse 79 06/17/16 16:00 Resp 18 06/17/16 16:00 BP 136/98 06/17/16 16:00 Pulse Ox 97 06/17/16 16:00 06/16/16 04:20 06/17/16 03:35 - Assessment (1) Hypertensive emergency Acute I16.1 - HYPERTENSIVE EMERGENCY Comment/Plan: Up titrate medications to keep SBP around 140. Detailed dietary instructions were provided the patient by dietitian today (2) Congestive heart failure Acute I50.9 - HEART FAILURE, UNSPECIFIED Qualifiers: Congestive heart failure type: diastolic Congestive heart failure chronicity: acute Qualified Code(s): I50.31 - Acute diastolic (congestive) heart failure Comment/Plan: 2D echo results discussed in details with patient and his ; copy of report provided for home records. Test shows mild C LVH with diffuse hypokinesis EF of 51% and advanced diastolic dysfunction moderate MR normal RV size and function dilated RA and IVC. Adjust medications continue diuretic and salt restriction monitor weight (3) CVA (cerebral vascular accident) Chronic I63.9 - CEREBRAL INFARCTION, UNSPECIFIED Qualifiers: Laterality of affected vessel: bilateral Comment/Plan: Continue full dose aspirin. Carotid Dopplers will be obtained (4) Dyslipidemia Chronic E78.5 - HYPERLIPIDEMIA, UNSPECIFIED Comment/Plan: Continue statin, lipid panel pending. (5) Nicotine addiction Acute F17.200 - NICOTINE DEPENDENCE, UNSPECIFIED, UNCOMPLICATED Qualifiers: Nicotine product type: cigarettes Substance use status: other nicotine- induced disorder Qualified Code(s): F17.218 - Nicotine dependence, cigarettes , with other nicotine-induced disorders Comment/Plan: Continue nicotine patch. Smoking cessation counseling provided the patient (6) Alcohol abuse Acute F10.10 - ALCOHOL ABUSE, UNCOMPLICATED Comment/Plan: Counseled cessation. P.r.n. Ativan. Add thiamine Case Care Discussed with: Patient, Family, Nursing Staff Education/Counseling Given To: Patient Education/Counseling Given Regarding: Diagnosis, Treatment, Prognosis, Follow Up Total Time: 45 min . Critical Care: No Code: 86002 (12+)
[2016-06-17] MEDS: ATORVASTATIN 20 MG TAB PO SCH (20:07)
[2016-06-17] MEDS: CARVEDILOL 12.5 MG TAB PO SCH (20:07)
[2016-06-18 05:29] LABS: BLOOD UREA NITROGEN 26 MG/DL (9-20); CALCIUM 9.7 MG/DL (8.4-10.2); CALCULATED OSMOLALITY 271 MOs/Kg (270-290); CHLORIDE 99 mEq/L (98-107); GLUCOSE 102 MG/DL (70-99); SODIUM LEVEL 138 mEq/L (137-146)
[2016-06-18] MEDS ORDERED: ISOSORBIDE MONONITRATE 30 MG TAB PO SCH (06:00)
[2016-06-18] MEDS ORDERED: FUROSEMIDE 40 MG TAB PO SCH (08:00)
[2016-06-18] MEDS: CARVEDILOL 12.5 MG TAB PO SCH (08:03)
[2016-06-18] MEDS: ASPIRIN 325 MG TAB PO SCH (08:03)
[2016-06-18] MEDS: THIAMINE 100 MG TAB PO SCH (08:03)
[2016-06-18 08:13] VITALS: BP 129/69; PULSE 70; TEMP 97.5
--- NOTE | 2016-06-18 08:57 | PCM.DCS92 ---
- Final/Secondary Discharge Diagnosis (1) Hypertensive emergency Resolved I16.1 - HYPERTENSIVE EMERGENCY Present on Admission: Yes Comment: Up titrate medications to keep SBP around 140. Detailed dietary instructions were provided the patient by dietitian today (2) Congestive heart failure Acute I50.9 - HEART FAILURE, UNSPECIFIED Present on Admission: Yes diastolic acute I50.31 - Acute diastolic (congestive) heart failure Comment: 2D echo results discussed in details with patient and his ; copy of report provided for home records. Test shows mild C LVH with diffuse hypokinesis EF of 51% and advanced diastolic dysfunction moderate MR normal RV size and function dilated RA and IVC. Adjust medications continue diuretic and salt restriction monitor weight (3) CVA (cerebral vascular accident) Chronic I63.9 - CEREBRAL INFARCTION, UNSPECIFIED Present on Admission: Yes bilateral Comment: Continue full dose aspirin. Carotid Dopplers will be obtained (4) Dyslipidemia Chronic E78.5 - HYPERLIPIDEMIA, UNSPECIFIED Present on Admission: Yes Comment: Continue statin, lipid panel pending. (5) Nicotine addiction Chronic F17.200 - NICOTINE DEPENDENCE, UNSPECIFIED, UNCOMPLICATED Present on Admission: Yes cigarettes other nicotine-induced disorder F17.218 - Nicotine dependence, cigarettes, with other nicotine-induced disorders Comment: Continue nicotine patch. Smoking cessation counseling provided the patient (6) Alcohol abuse Acute F10.10 - ALCOHOL ABUSE, UNCOMPLICATED Present on Admission: Yes Comment: Counseled cessation. P.r.n. Ativan. Add thiamine Discharge Disposition: Home Discharge Condition: Improved Cognitive Discharge Status: Unimpaired Fuctional Discharge Status: Independent Physician Follow up/Referrals: Avis Vyas MD [NonStaff] - Listed Time Raphael Eddy MD [Staff Physician] - Two Weeks New Prescriptions: Atorvastatin Calcium 40 mg PO QHS #90 tablet Citalopram Hydrobromide [Citalopram HBr] 20 mg PO HS #90 tab Carvedilol [Coreg] 12.5 mg PO BID #180 tab Aspirin (Enteric Coated) [Halfprin] 235 mg PO DAILY #30 tab Isosorbide Mononitrate [Imdur] 30 mg PO DAILY #90 tab Furosemide [Lasix] 40 mg PO BID #120 tab Lisinopril 20 mg PO DAILY #90 tablet Potassium Chloride 40 meq PO DAILY #120 tablet.er O2 Device: Room Air Diet at Discharge: Heart Healthy, Low Salt, High Fiber Activity: As Tolerated Call Office For: Worsening Symptoms, Fever over 101 F Discontinue use of:: Alcohol, All Illegal Substances, All Types of Tobacco - DC Summary Notes Hospital Course Note:: Patient has initially presented to emergency room on June 15 for evaluation of progressive worsening difficulties breathing PND orthopnea weight gain and elevated blood pressure. Please refer to the admission for further details. His initial blood pressure was 220/170, patient was found to be in severe respiratory distress hypoxic tachypneic and tachycardic. Chest x-ray showed pulmonary edema, patient was started on supplemental O2 IV diuretic and anti hypertensive regimen was instituted. Patient was admitted to step-down unit, his blood pressure has slowly improved and remained under fairly good control throughout remaining part of hospitalization. 2D echo was performed which showed mild C LVH, EF of 51% advanced diastolic dysfunction, moderate mitral regurgitation, normal RV size and function dilated RA and IVC mild aortic valve sclerosis.. Treatment with IV Lasix was continued, patient was started on Mike inhibitor and cardiac, Imdur was added to his therapy as well. Detailed CHF education along with dietary instructions was provided the patient. Head CT showed periventricular small vessel disease and several prior small infarcts in white matter and in anterior left lentiform nucleus and mid right thalamus but no acute infarct. Since admission patient be CV full-dose of aspirin daily. Carotid Dopplers showed less than 50% stenosis bilaterally and antegrade flow in the left vertebral artery and right vertebral artery occlusion. Patient activity level was gradually advanced and he was gradually weaned off the oxygen. By the time of discharge patient is able to ambulate freely with no assistance and his blood pressures remained under good control. Smoking cessation and alcohol cessation counseling was provided during this hospital stay. It was felt that by June 18 patient has reached maximum benefit of inpatient therapy and in clinically stable improved condition he has been discharged home to the care of the family and his PCP. Total Time: 45 min. Code: 95849 (>30min.) - Physical Exam Vital Signs: Last Vital Signs Temp 97.5 F 06/18/16 08:00 Pulse 70 06/18/16 08:00 Resp 18 06/18/16 08:00 BP 129/69 06/18/16 08:00 Pulse Ox 96 06/18/16 08:00 Oxygen Pulse Oxygen Saturation 96 O2 Device Room Air Oxygen Flow Rate Fraction of Inspired Oxygen ( FIO2) Constitutional: Alert (Awake), Distress, Restless, Well nourished. negative: Well appearing Oriented to: Time, Person, Place - HEENT Head: Normal ( normocephalic) Eye: Normal (PERRL, EOMI, Sclera white) Oropharynx: Normal (Pharynx:Moist without exudate,Gums-no swelling) Tympanic Membrane: Normal ENT EAC: Normal TMJ: Normal Nose: No Symptoms Reported (septum midline) - Respiratory/Cardiovascular Respiratory: Diminished, Rhonchi Cardiovascular: Normal, Systolic murmur - GI Auscultation: Normal (NABS) Palpation: Normal (Soft,No rebound or guarding, non distended) Tenderness: Non tender Rectal Exam: Deferred - Exam Deferred: Yes - Musculoskeletal Back: Normal (Non-Tender). negative: Abrasion, Ecchymosis Extremities: Normal (Normal tone, Pulses 2+ No cyanosis or edema, FROM), Edema, Femoral Pulse, Pedal Edema, Pedal Pulse - Integumentary Skin: Normal, Warm, Dry Lymphatics: Normal (no adenopathy). negative: Adenopathy - Neurologic Memory Impaired: Normal Motor Function: Normal Cranial Nerve: Normal Cerebellar: Normal Mood Description: Normal, Anxious Thought: Coherent Perception: Normal - Other Exam Other Exam Findings: Allergies No Known Allergies Allergy (Verified 06/15/16 20:09) Discharge Home Medication List Aspirin (Enteric Coated) [Halfprin] 235 mg PO DAILY #30 tab 06/18/16 [Rx] Atorvastatin Calcium 40 mg PO QHS #90 tablet 06/18/16 [Rx] Carvedilol [Coreg] 12.5 mg PO BID #180 tab 06/18/16 [Rx] Citalopram Hydrobromide [Citalopram HBr] 20 mg PO HS #90 tab 06/18/16 [Rx] Furosemide [Lasix] 40 mg PO BID #120 tab 06/18/16 [Rx] Isosorbide Mononitrate [Imdur] 30 mg PO DAILY #90 tab 06/18/16 [Rx] Lisinopril 20 mg PO DAILY #90 tablet 06/18/16 [Rx] Potassium Chloride 40 meq PO DAILY #120 tablet.er 06/18/16 [Rx] New Discharge Medications (Rx) Aspirin (Enteric Coated) [Halfprin] 235 mg PO DAILY #30 tab 01/06/17 [Rx] Atorvastatin Calcium 40 mg PO QHS #90 tablet 06/18/16 [Rx] Carvedilol [Coreg] 12.5 mg PO BID #180 tab 06/18/16 [Rx] Citalopram Hydrobromide [Citalopram HBr] 20 mg PO HS #90 tab 06/18/16 [Rx] Furosemide [Lasix] 40 mg PO BID #120 tab 06/18/16 [Rx] Isosorbide Mononitrate [Imdur] 30 mg PO DAILY #90 tab 06/18/16 [Rx] Lisinopril 20 mg PO DAILY #90 tablet 06/18/16 [Rx] Potassium Chloride 40 meq PO DAILY #120 tablet.er 06/18/16 [Rx] Abnormal Lab Results 06/18/16 04:20 BUN 26 H Creatinine 1.40 H Estimated GFR (MDRD) 53 L Glucose 102 H 06/16/16 04:20 06/18/16 04:20 Active Problems Alcohol abuse (Acute) F10.10 Counseled cessation. P.r.n. Ativan. Add thiamine Congestive heart failure (Acute) I50.9 2D echo results discussed in details with patient and his ; copy of report provided for home records. Test shows mild C LVH with diffuse hypokinesis EF of 51% and advanced diastolic dysfunction moderate MR normal RV size and function dilated RA and IVC. Adjust medications continue diuretic and salt restriction monitor weight Hypertensive emergency (Acute) I16.1 Up titrate medications to keep SBP around 140. Detailed dietary instructions were provided the patient by dietitian today Malignant hypertension (Acute) I10 Starting Coreg and lisinopril. P.r.n. hydralazine and labetalol. Titrate medications as needed. Nicotine addiction (Acute) F17.200 Continue nicotine patch. Smoking cessation counseling provided the patient Respiratory distress (Acute) R06.00 Improving with improved blood pressure. Oxygen as needed. Start some IV Lasix. Tobacco abuse (Acute) Z72.0 He has been cutting back due to worsening respiratory difficulty. Counseled complete and total cessation. CVA (cerebral vascular accident) (Chronic) I63.9 Continue full dose aspirin. Carotid Dopplers will be obtained Dyslipidemia (Chronic) E78.5 Continue statin, lipid panel pending. Last Vital Signs Temp 97.5 F 06/18/16 08:00 Pulse 70 06/18/16 08:00 Resp 18 06/18/16 08:00 BP 129/69 06/18/16 08:00 Pulse Ox 96 06/18/16 08:00
[2016-06-18] MEDS ORDERED: LISINOPRIL 40 MG TAB PO SCH (09:00)
== END 2016-06-18 09:55 | disposition home or self-care (01) | DRG 304 ==
LOC: ED 14:30 → PCU 17:22
PROVIDERS: ADMIT Hospitalist; ATTEND Internal Medicine
DX: I16.1 Hypertensive emergency (principal); I50.31 Acute diastolic (congestive) heart failure; I10 Essential (primary) hypertension; Z86.73 Personal history of transient ischemic attack (TIA), and cerebral infarction without residual deficits; E78.5 Hyperlipidemia, unspecified; F17.218 Nicotine dependence, cigarettes, with other nicotine-induced disorders; F10.10 Alcohol abuse, uncomplicated; I34.0 Nonrheumatic mitral (valve) insufficiency
CPT/HCPCS: 36415; 70450; 71010; 80048; 80053; 80061; 83735; 83880; 84484; 85025; 85610; 85730; 90656; 90732; 93005; 93306; 93880; 96372; 96374; 96375; 99284; G0237; J0360; J1650; J1940; J3490